=== PATIENT | female | born 1945 | race Caucasian/White ===

== ENCOUNTER 2016-07-28 10:38 | Day surgery (SDC) | payer MEDICARE, OTHER ==
[~2016-07-28] VITALS: Ht 157.5 cm; Wt 70.9 kg
[2016-07-28] MEDS ORDERED: LIPITOR40 MG PO (13:19)
[2016-07-28] MEDS ORDERED: LOVENOX60 MG/0.6 SC (13:19)
[2016-07-28] MEDS ORDERED: COUMADIN6 MG PO (13:20)
[2016-07-28] MEDS ORDERED: COUMADIN1 MG PO (13:20)
[2016-07-28] MEDS ORDERED: LOTREL 10/20 CA1 CAP PO (13:21)
[2016-07-28] MEDS ORDERED: SYNTHROID50 MCG PO (13:21)
[2016-07-28] MEDS ORDERED: COUMADIN5 MG PO (13:21)
[2016-07-28 13:26] VITALS: BP 142/79; Ht 157.5 cm; Wt 70.9 kg
[2016-07-28 13:40] LABS: BASOPHILS 0.4 % (0.0-2.0); EOSINOPHILS 0.4 % (0-7); HEMATOCRIT 42.9 % (36.0-48.0); HEMOGLOBIN 14.5 g/dL (12-16); IMMATURE GRANULOCYTES 0.3 % (0-5); LYMPHOCYTES 21.3 % (15-50); MCH 32.2 pg (26.0-34.0); MCHC 33.8 g/dL (31.0-37.0); MCV 95.1 fL (80.0-100.0); MEAN PLATELET VOLUME 9.5 fL (7.4-10.4); MONOCYTES 9.4 % (2-11); NEUTROPHILS 68.2 % (40-80); PLATELET COUNT 306 10x3/uL (130-400); RBC 4.51 10x6/uL (4.00-5.40); RDW 13.4 % (11.5-14.5); WBC 7.5 10x3/uL (4.8-10.8)
[2016-07-28 14:11] LABS: ANION GAP 13.8 mmol/L (8-16); CALCIUM 9.1 mg/dL (8.5-10.1); CARBON DIOXIDE 26.4 mmol/L (21.0-32.0); CREATININE - SERUM 0.9 mg/dL (0.6-1.3); POTASSIUM - SERUM 4.2 mmol/L (3.5-5.1)
--- NOTE | 2016-07-28 16:25 | NUR ---
1535- PT SITTING UP WITH HOB ELEVATED. AWAKE AND ALERT. VSS. PASSING GAS WATER OFFERED. WILL MONITORED. 1600- REFUSING FULL LIQUID TRAY. WATER TOLERATED. 1610- IV D/C'D, PT TOLERATED. CATHETER INTACT. 1620- DISCHARGE INSTRUCTIONS COMPLETED, PT VERBALIZED UNDERSTANDING. PAPERWORK SIGNED. 1625- PT DISCHARGED VIA WHEELCHAIR WITH FAMILY.
--- NOTE | 2016-08-01 13:02 | OP ---
PATIENT NAME: KODI ZHOU MEDICAL RECORD: [id number] :49 LOCATION:D.[facility] ADMISSION DATE: SURGEON: NINOSKA BRYANT DO DATE OF OPERATION: 07/28/2016 PROCEDURE: Colonoscopy with hot forceps polypectomy. SCOPE: Olympus video pediatric colonoscope. MEDICATIONS: Propofol 290 mg IV per anesthesia. INDICATIONS: History of colon polyps and screening colonoscopy. FINDINGS: Informed consent was given. The patient was made comfortable with the above medication. After reaching an adequate level of sedation by slow IV push, the patient was placed in the left side. The digital rectal examination was performed and was normal. The colonoscope was then advanced under direct visualization through the rectum to the cecum evidenced by the appendiceal orifice and ileocecal valve. The scope was then slowly withdrawn and the mucosa was carefully examined. The withdrawal time was 30 minutes in total. There was evidence of moderate diverticulosis involving the sigmoid colon. There were 3 polyps in total, all localized through the descending colon. They all had a benign, sessile appearance and measured approximately 5-6 mm in diameter. All were removed with hot forceps polypectomy and completely retrieved in 1 piece. The endoscope was withdrawn back to the rectum and retroflexed when the view was normal. The scope was then withdrawn completely. The patient tolerated the procedure well and there were no complications. ESTIMATED BLOOD LOSS: Minimal. IMPRESSION: 1. Moderate diverticulosis of the sigmoid colon. 2. Three descending colon benign appearing, sessile polyps, all removed with hot forceps successfully. PLAN AND RECOMMENDATIONS: 1. Discharge home when recovery parameters are met. 2. Continue high fiber diet. 3. Continue current medications. 4. Recall pending pathology of polyps. At this time, I anticipate a 5-year recall. TRANSINT:[id number] Voice Confirmation ID: [id number] DOCUMENT ID: [id number] NINOSKA BRYANT DO at 1302 CC: [id number] DICTATION DATE: 07/28/161524 LETTUCE TRIMMER: 07/28/162034 [facility] 07/28/16 [facility] [address] [place] [address]
== END 2016-07-28 16:25 | disposition home or self-care (01) ==
LOC: D.OPS 10:38
PROVIDERS: Anesthesiology
DX: Z12.11 Encounter for screening for malignant neoplasm of colon (principal); D12.4 Benign neoplasm of descending colon; K57.30 Diverticulosis of large intestine without perforation or abscess without bleeding; Z86.010 Personal history of colon polyps

== ENCOUNTER → 2019-03-26 09:52 | Outpatient (CLI) | payer MEDICARE, OTHER ==
[2016-07-28 13:26] VITALS: BMI 28.6
[~2019-03-26 09:52] MED LIST: COUMADIN1 MG PO; COUMADIN5 MG PO; COUMADIN6 MG PO; LIPITOR40 MG PO; LOTREL 10/20 CA1 CAP PO; LOVENOX60 MG/0.6 SC; SYNTHROID50 MCG PO
--- NOTE | 2019-03-27 08:54 | EC ---
PATIENT:KODI ZHOU DATE OF SERVICE: 03/26/19 SEX: F MEDICAL RECORD: [id number] DATE OF : 49 LOCATION:D[facility] AGE OF PATIENT: 73 ADMISSION DATE: 03/26/19 REFERRING PHYSICIAN: INTERPRETING PHYSICIAN: SEBAS WYATT MD ECHOCARDIOGRAM REPORT ECHO CHARGES 4 ECHO COMPLETE Date: 03/26/19 CLINICAL DIAGNOSIS: AROTIC VALVE DISEASE/ AORTIC VALVE REPLACEMENT MECHANICAL ECHOCARDIOGRAPHIC MEASUREMENTS (adult normal given) AC root (d.<3.7cm) 3.2 cm LV Septum d (<1.2 cm> 1.4 cm Valve Excursion 1.3 cm LV Septum (systole) 1.6 cm Left Atria (s.<4.0cm> 3.6 cm LVPW d(<1.2cm) 1.4 cm RV (d.<2.3cm) 4.5 cm LVPW (sytole) 1.6 cm LV diastole(<5.6CM) 5.0 cm MV E-F(>70mm/sec) cm LV systole 3.7 cm LVOT Diameter 1.6 cm MV exc.(>10mm) 1.1 cm Est.ejection fraction (50-75%) % DOPPLER: LVIT cm/sec A 113 cm/sec E 93.0 cm/sec LA cm/sec RVSP 27 mmHg LVOT 261 cm/sec AOP1/2T m/s Asc. Ao 256 cm/sec RVOT 77 cm/sec RA cm/sec PA 105 cm/sec AV Gradient Peak 26.19mmHg AV Mean 16.08mmHg AV Area 2.2 cm MV Gradient Peak 6.26 mmHg MV Mean 2.44 mmHg MV Area cm COMMENTS: Youth Liaison Officer: Abhishek SUTTON [employer]: 3 Dr. Ruano TAPE# PACS Pericardial Effusion N DATE OF SERVICE: 03/26/2019 Adequate 2D, color flow, spectral Doppler, and M-Mode. LVH is present. LV internal dimension is normal. Wall motion is normal. Mechanical prosthetic aortic valve is noted with acceptable Doppler velocity. No significant AI. Left atrium is normal at 3.6. Mitral valve shows no prolapse. Trace MR. Right-sided chambers are grossly normal. Trace TR. TRANSINT:[id number] Voice Confirmation ID: [id number] DOCUMENT ID: [id number] ECHOCARDIOGRAM REPORT [id number] KODI ZHOU GREGORY A MD at 0854 CC: [id number] DICTATION DATE: 03/26/19 132 RN NAVIGATOR: 03/26/191947 DEP CLI 03/26/19 [place] [id number] [place] [id number]
== END | disposition home or self-care (01) ==
LOC: D.HCCECHO 09:52
PROVIDERS: ATTEND Internal Medicine Interventional Cardiology
DX: I60.9 Nontraumatic subarachnoid hemorrhage, unspecified (principal)